=== PATIENT | female | born 1945 | race Hispanic/Latino ===

== ENCOUNTER 2017-08-10 09:16 | Outpatient (CLI) | payer MEDICARE ==
--- NOTE | 2017-08-10 10:06 | Mammography Report ---
BONE DENSITY STUDY: Postmenopausal osteoporosis. DEFINITIONS: BMD = Bone Mineral Density T-score = BMD related to mean peak bone mass of young adult (mean expressed in Standard Deviation) Z-score = Age matched BMD expressed in SD World Health Organization (WHO) Diagnostic Criteria Normal T-score > -1 SD Osteopenia T-score between -1 and -2.4 SD Osteoporosis T-score -2.5 SD or below FINDINGS: The weighted average BMD of lumbar spine L1-L4 is 0.666 with a T-score of -3.5. The weighted average BMD of the left hip is 0.645 with a T-score of -2.4. IMPRESSION: The patient's average T-score is diagnostic for osteoporosis and high relative risk for fracture. NOTE: BMD is not the only risk factor for fracture; also consider factors such as the patient's age, risk of falling, previous osteoporotic fracture, family history of osteoporotic fractures, current smoker, and low body weight. Russell's triangle is a region of interest in femur, predominantly of trabecular bone. It is not a true anatomic site, and [facility] does not recommend its use clinically.
--- NOTE | 2017-08-10 11:09 | XRay Report ---
PA and lateral chest: Cough. The patient has bilateral mammary implants with calcified capsules. The lungs are clear and well inflated. The mediastinal contour is unremarkable. The bony structures appear normal. No prior study for comparison. Impression: No acute findings.
--- NOTE | 2017-08-10 11:18 | XRay Report ---
AP PELVIS: Pelvic pain. AP view of the pelvis shows normal pelvic contour and soft tissues. The hips are symmetric and within normal limits as are the sacroiliac joints. IMPRESSION: Normal pelvis.
--- NOTE | 2017-08-10 11:54 | XRay Report ---
Lumbar spine: Low back pain. There is a grade 1/2 anterior L5 spondylolisthesis with bilateral spondylolyses. Mild anterior traction spurs are identified at the L2-3 level with mild narrowing of the interspaces at L1-2 and L2-3. The vertebral height is well maintained. The bones are well-mineralized. Compared to a CAT scan in 2014 the L5 spondylolisthesis has worsened. The interspaces also appear narrowed. Impressions: 1. L5-S1 spondylolisthesis and spondylolysis. 2. Discogenic narrowing from L1-L3.
== END 2017-08-10 09:17 | disposition home or self-care (01) ==
LOC: MAMMO 09:16
PROVIDERS: ATTEND Internal Medicine
DX: M81.0 Age-related osteoporosis without current pathological fracture (principal); M43.16 Spondylolisthesis, lumbar region; G89.29 Other chronic pain; M54.40 Lumbago with sciatica, unspecified side; R05 Cough; R10.2 Pelvic and perineal pain; Z78.0 Asymptomatic menopausal state; Z98.82 Breast implant status
CPT/HCPCS: 71020; 72100; 72170; 77080